=== PATIENT | male | born 1975 | race Two or more races ===

== ENCOUNTER 2018-04-02 12:20 | Emergency (ER) | payer OTHER ==
--- NOTE | 2018-04-02 12:28 | CPEKG ---
Heart Rate: 51 RR Interval: 1176 P-R Interval: 144 QRSD Interval: 96 QT Interval: 420 QTC Interval: 387 P Marion: 48 QRS Marion: -11 T Wave Marion: 8 EKG Severity - NORMAL ECG - EKG Impression: SINUS RHYTHM Electronically Signed By: Ricky Moran 02-Apr-2018 13:35:15
--- NOTE | 2018-04-02 12:56 | EDPHY ---
H & P Stated Complaint: CP,nausea Time Seen by Provider: 04/02/18 12:56 HPI/ROS: CHIEF COMPLAINT: Nausea, presyncope, paresthesias left arm, chest discomfort HISTORY OF PRESENT ILLNESS: The patient presents the ED with a constellation of symptoms which began at 9 o'clock this morning including nausea, presyncope, mild chest discomfort and paresthesias in his left arm. The patient reports that he has had some spontaneous improvement of his symptoms. He denies any history exertional chest pain or shortness of breath. The patient denies any asymmetric calf pain or swelling. The patient denies fever, cough or congestion. The patient denies any risk factors for coronary artery disease. He denies tobacco or alcohol use. REVIEW OF SYSTEMS: A comprehensive 10 point review of systems is otherwise negative aside from elements mentioned in the history of present illness. Source: Patient Exam Limitations: No limitations - Medical/Surgical History Hx Asthma: No Hx Chronic Respiratory Disease: No Hx Diabetes: No Hx Cardiac Disease: No Hx Renal Disease: No Hx Cirrhosis: No Hx Alcoholism: No Hx HIV/AIDS: No Hx Splenectomy or Spleen Trauma: No Other PMH: denies. - Social History Smoking Status: Never smoked - Physical Exam Exam: General Appearance: Alert, no distress Eyes: Pupils equal and round no pallor or injection ENT, Mouth: Mucous membranes moist Respiratory: There are no retractions, lungs are clear to auscultation Cardiovascular: Regular rate and rhythm Gastrointestinal: Abdomen is soft and nontender, no masses, bowel sounds normal Neurological: A&O, normal motor function, normal sensory exam, normal cranial nerves Skin: Warm and dry, no rashes Musculoskeletal: Neck is supple nontender Extremities: symmetrical, full range of motion Constitutional: Initial Vital Signs Temperature (C) 36.5 C 04/02/18 12:26 Heart Rate 54 L 04/02/18 12:26 Respiratory Rate 18 04/02/18 12:26 Blood Pressure 132/89 H 04/02/18 12:26 O2 Sat (%) 98 04/02/18 12:26 O2 Delivery Mode Room Air O2 (L/minute) 2 Allergies/Adverse Reactions: No Known Allergies Allergy (Unverified 04/02/18 13:40) Home Medications: Medication Instructions Recorded NK [No Known Home Meds] 04/02/18 Medical Decision Making - Diagnostics EKG Interpretation: EKG: Complete interpretation has been separately recorded in the [facility] archive. Summary impression: Sinus rhythm, rate 51 Imaging Results: Imaging Impressions Chest X-Ray 04/02/18 13:19 Impression: Right hemidiaphragm elevation of unknown etiology. Otherwise negative. ED Course/Re-evaluation: Patient presents to the ED with a 1 day history of atypical chest pressure, left arm paresthesias, lightheadedness and nausea. The patient has had persistent symptoms since sign o'clock this morning. The patient's EKG demonstrates no evidence of ischemia. The patient's initial troponin is normal. The patient has no evidence of electrolyte abnormality, significant anemia or abnormalities noted on his chest x-ray. I re-evaluated the patient at 3:00 p.m.. He is ambulatory. He has no additional complaints. I have explained to him the workup in the emergency department. He is low risk for coronary artery disease. I have explained to him the testing limitations be having the emergency department. He does understand that we have not fully excluded coronary artery disease. He is comfortable being discharged home and following up with Cardiology for further evaluation. He does understand return to the ED immediately for any recurrent chest pain, worsening chest pain, difficulty breathing or other concerns. Differential Diagnosis: Differential diagnosis considered includes acute coronary syndrome, dehydration , metabolic abnormality, myocardial infarction - Data Points Laboratory Results: Laboratory Results 04/02/18 12:26 04/02/18 12:26 04/02/18 04/02/18 12:26 12:26 WBC 9.95 10^3/uL H 10^3/uL (3.80-9.50) RBC 5.41 10^6/uL 10^6/uL (4.40-6.38) Hgb 16.3 g/dL g/dL (13.7-17.5) Hct 46.1 % % (40.0-51.0) MCV 85.2 fL fL (81.5-99.8) MCH 30.1 pg pg (27.9-34.1) MCHC 35.4 g/dL g/dL (32.4-36.7) RDW 12.8 % % (11.5-15.2) Plt Count 264 10^3/uL 10^3/uL (150-400) MPV 10.4 fL fL (8.7-11.7) Neut % (Auto) 66.2 % % (39.3-74.2) Lymph % (Auto) 24.1 % % (15.0-45.0) [place] % (Auto) 6.6 % % (4.5-13.0) Eos % (Auto) 1.9 % % (0.6-7.6) Baso % (Auto) 0.5 % % (0.3-1.7) Nucleat RBC Rel Count 0.0 % % (0.0-0.2) Absolute Neuts (auto) 6.58 10^3/uL H 10^3/uL (1.70-6.50) Absolute Lymphs (auto) 2.40 10^3/uL 10^3/uL (1.00-3.00) Absolute Monos (auto) 0.66 10^3/uL 10^3/uL (0.30-0.80) Absolute Eos (auto) 0.19 10^3/uL 10^3/uL (0.03-0.40) Absolute Basos (auto) 0.05 10^3/uL 10^3/uL (0.02-0.10) Absolute Nucleated RBC 0.00 10^3/uL 10^3/uL (0-0.01) Immature Gran % 0.7 % % (0.0-1.1) Immature Gran # 0.07 10^3/uL 10^3/uL (0.00-0.10) Sodium 144 mEq/L mEq/L (135-145) Potassium 4.7 mEq/L mEq/L (3.3-5.0) Chloride 107 mEq/L mEq/L (97-110) Carbon Dioxide 21 mEq/l L mEq/l (22-31) Anion Gap 16 mEq/L mEq/L (8-16) BUN 12 mg/dL mg/dL (7-23) Creatinine 0.8 mg/dL mg/dL (0.7-1.3) Estimated GFR > 60 Glucose 111 mg/dL H mg/dL (70-100) Calcium 9.6 mg/dL mg/dL (8.5-10.4) Troponin I < 0.012 ng/mL ng/mL (0.000-0.034) Departure - Departure Disposition: Home, Routine, Self-Care Clinical Impression: Chest pain Condition: Good Instructions: Chest Pain (ED) Additional Instructions: 1. Based upon the testing done in the Emergency Department today we see no evidence of a heart attack. 2. We are unable to fully exclude coronary artery disease based upon the testing available in the Emergency Department. 3. For this reason, we would like you to be seen by cardiology for consideration of additional testing within the next 3 days. 4. Please contact the eyeglass maker you have been referred to schedule this appointment as soon as possible. Their offices are typically open from 8:30am- 5pm M-F. 5. Please return to the Emergency Department immediately for any recurrent chest pain, difficulty breathing or other concerns. Referrals: Reina Lind MD [Medical Doctor] - As per Instructions
[2018-04-02 13:27] LABS: PLATELET COUNT 264 10^3/uL (150-400)
[2018-04-02 15:25] VITALS: BP 130/85
== END 2018-04-02 15:22 | disposition home or self-care (01) ==
DX: R07.9 Chest pain, unspecified (principal)